=== PATIENT | male | born 1955 | race Two or more races ===

== ENCOUNTER 2020-02-24 02:42 | Outpatient (CLI) | payer OTHER | END 2020-02-24 15:00 | disposition home or self-care (01) | LOC: PPH VACUNA 02:42 | PROVIDERS: ATTEND Emergency Medicine Pediatric Emergency Medicine | DX: Z23 Encounter for immunization (principal) ==

== ENCOUNTER 2020-11-19 02:45 | Outpatient (CLI) | payer OTHER | END 2020-11-19 15:00 | disposition home or self-care (01) | LOC: PPH VACUNA 02:45 | PROVIDERS: ATTEND Emergency Medicine Pediatric Emergency Medicine | DX: Z23 Encounter for immunization (principal) ==